=== PATIENT | male | born 1975 | race Caucasian/White ===

== ENCOUNTER → 2017-10-24 | Outpatient (CLI) | payer OTHER ==
--- NOTE | 2017-10-24 10:24 | RADIOLOGY REPORT (SQ) ---
EXAM DESCRIPTION: CORTNEY SWALLOW COMPLETED DATE/TIME: 10/24/2017 8:59 am REASON FOR STUDY: DYSPHAGIA multiple sclerosis COMPARISON: None. TECHNIQUE: Videofluoroscopic swallowing examination was performed in conjunction with speech patholo gy. Videofluoroscopic imaging was obtained and reviewed and these are the findings: RADIATION DOSE: 1 minutes 45 seconds of fluoroscopy was used. 2 images saved to PACS. LIMITATIONS: None FINDINGS: The patient was brought into the fluoro room and placed upright on a modified barium swall ow chair. The patient was then given multiple consistencies mixed with barium to swallow under live fluoroscopic video guidance. According to the Speech Pathologist there was no penetration or aspirat ion. Post swallow residual contrast seen in the vallecular. IMPRESSION: NO EVIDENCE OF PENETRATION OR ASPIRATIONPLEASE SEE SPEECH PATHOLOGIST REPORT FOR OTHER F INDINGS AND RECOMMENDATIONS. COMMENT: Quality ID [id number]: Final reports for procedures using fluoroscopy that document radiation exp osure indices, or exposure time and number of fluorographic images (if radiation exposure indices are not available) TECHNICAL DOCUMENTATION: JOB ID: [id number] [employer]- All Rights Reserved Reading location - IP/workstation name: [email or web address]
--- NOTE | 2017-10-24 10:28 | ST Modified Barium Swallow ---
Recommendation - Recommendations Recommendations: Recommend alternating bites and sips and keeping head in neutral position while drinking. No significant swallowing deficits seen, no additional skilled dysphagia services indicated at this time. Patient and physician should monitor for any progression in dysphagia symptoms. Medical Diagnoses - Medical Diagnoses Medical Diagnosis Description & ICD-10 Code(s): dysphagia R13.10 Other Medical Diagnoses/Co-Morbidities: per patient report: multiple sclerosis, reflux, hiatal hernia ST Modified Barium Swallow - General Date: 10/24/17 Risks/Precautions: Falls Date of Onset: 10/02/16 - approximate onset date Reason for Referral: difficulty with water - History History obtained from: Patient -: Medical - Patient acted as historian. He states that for approximately 1 year he has noted difficulty swallowing water. States that he coughs usually 1x per day when drinking liquids. Does not report difficulty with solids. No recent history of pneumonia or bronchitis, no diet changes currently. Medications: per patient report: vitamin D, prilosec, melatonin, cymbalta, oxybutynin, zanaflex Allergies: none reported - Functional Status Prior Functional Status: INDEPENDENT: feeding - independent Current Functional Limitations: feeding - coughing with water - Subjective Patient/caregiver goal(s): better swallow, safe swallow Cognitive-Linguistic Function: WNL Speech Intelligibility: WNL Current Nutritional Means: PO Current PO diet: Regular Current symptoms: Coughing Pain: Patient reports, 0/5 - Objective Assessment: Upright, Left Lateral - Food Trials Used Food trials used: Thin liquids, Pureed, Regular The patient: Was Able to Self Feed - Oral-Motor Skills Dentition: Full Velo-pharyngeal function: Unremarkable - Assessment Oral prep: Normal Labial closure: Adequate Leakage: None Mastication: Adequate Lingual Movement: Normal Oral stage: Normal for this Procedure - Pharyngeal Stage Initiation of Pharyngeal Stage Reflex: Normal Decreased laryngeal elevation: No Reduced Velopharyngeal Closure: no Reduced pressure generation: No reduced tongue-based retraction: No Pre-swallow pooling in valleculae: None Pre-Swallow pooling in pyriforms: None Reduced Thyro-Hyoid approximation: No Reduced epiglottic excursion: No Reduced pharyngeal peristalsis/contraction: No Multiple Swallows with: Cleared w/ Liquid Assist Post-swallow residulas vallecular: Moderate Post-Swallow residuals in pyriforms: None Reduced Cricopharyngeal opening: No - Fall Risk Assessment Medications/Conditions that increase fall risks include: Antidepressants, sedatives, anti-arrhythmic, diuretic, benzodiazipenes, neuroleptics. BP regulation problems, cardiac problems, balance or gait deficits, neurological problems. Fall Risk Actions Taken: No action needed - Behavioral Observations During evaluation process patient: was pleasant, was cooperative, able to answer questions, provided medical history - Treatment / Educational Needs: Treatment/Education Needs: Treatment consisted of patient education on the role of the Speech Pathologist. Patient's plan of care and golas were communicated as well as scheduling and attendance policies. Recommendations for initial home program were shared. Patient demonstrated understanding and verbalized agreement. - Impression/Summary Laryngeal Penetration: No Tracheal Aspiration: no Patient presents with: Pharyngeal stage dysph., Mild-Moderate Risk of Aspiration: Minimal Risk of nutritional compromise: None Evaluation and Findings: Patient presents with mild pharyngeal phase dysphagia characterized by residue in valleculae with regular solid trials. This cleared with liquid wash. Patient's primary complaint was with liquids, no difficulty with liquids seen this day. Discussed strategies for drinking liquids at home, such as reducing sip size and keeping head in a neutral position when drinking. Patient did state that he feels he may have his head back when swallowing difficulties occur. No additional skilled intervention indicated at this time. - Recommendations Solid diet recommendations: Regular Liquid Diet Modification: Thin Pt/Family education and followup with MD: Yes Dysphagia therapy with [employer] HELPER: no Reflux Precautions: Taught to Patient Recommended techniques: Fully Upright During Meal, Small Bites and Sips, Alternate Bites/Sips Information, Precautions and Recommendations: Patient (Written), Patient (Verbal ) - Time Total Time: 30 - Plan of Care Strategies to optimize patient understanding include:: ongoing assessment of educational needs, implementation of educational strategies, and re-education. - - -: Thank you for the opportunity to work with this patient and his/her family. Should you have any questions about this patient's plan or progress, I can be reached at [phone]. Charge G Code? - - -: No
== END ==
LOC: RAD 08:07
PROVIDERS: ATTEND Internal Medicine
DX: R13.10 Dysphagia, unspecified (principal); G35 Multiple sclerosis
CPT/HCPCS: 74230